=== PATIENT | female | born 1950 | race Caucasian/White ===

== ENCOUNTER 2020-03-12 11:26 | Outpatient (CLI) | payer MEDICARE, OTHER | END 2020-03-12 23:59 | disposition home or self-care (01) | LOC: RAD 11:26 | PROVIDERS: ATTEND Internal Medicine Cardiovascular Disease | DX: J98.4 Other disorders of lung (principal); I27.9 Pulmonary heart disease, unspecified | CPT/HCPCS: 78582; 94060; 94726; 94729; A9540; A9558 ==

== ENCOUNTER 2020-04-09 09:08 | Outpatient (CLI) | payer MEDICARE, OTHER, BC | END 2020-04-09 23:59 | disposition home or self-care (01) | LOC: STAR 09:08 | PROVIDERS: ATTEND Anesthesiology | DX: Z01.818 Encounter for other preprocedural examination (principal); Z11.59 Encounter for screening for other viral diseases | CPT/HCPCS: 36415; 87635 ==

== ENCOUNTER 2020-04-15 10:02 | Day surgery (SDC) | payer MEDICARE, BC, OTHER ==
[~2020-04-15] VITALS: Ht 172.7 cm; Wt 129.5 kg
[2020-04-15] MEDS ORDERED: SODIUM CHLORIDE 0.9% 1,000 ML IV SCH ×2 (10:17→13:06)
[2020-04-15] MEDS ORDERED: APIX5TAB PO (10:24)
[2020-04-15] MEDS ORDERED: METO-95 PO (10:30)
[2020-04-15] MEDS ORDERED: FLEC50TA25 PO (10:30)
[2020-04-15] MEDS ORDERED: DIPHENHYDRAMINE 50 MG/ML, 1ML IVPush ONE (10:30)
[2020-04-15] MEDS ORDERED: MAGNESIUM PO (10:30)
[2020-04-15] MEDS ORDERED: POTA8TAB PO (10:30)
[2020-04-15] MEDS ORDERED: FURO40TA6 PO (10:30)
[2020-04-15] MEDS ORDERED: DIPHENHYDRAMINE 50 MG/ML, 1ML ONE (10:44)
[2020-04-15 11:07] LABS: BASOPHILS # (AUTO) 0.07 x10^3/uL (0-0.1); BASOPHILS % (AUTO) 1 % (0-1); EOSINOPHILS # (AUTO) 0.29 x10^3/uL (0-0.4); EOSINOPHILS % (AUTO) 4 % (1-7); LYMPHOCYTES # (AUTO) 1.73 x10^3/uL (1-3.4); LYMPHOCYTES % (AUTO) 26 % (22-44); MD NO; MEAN CORPUSCULAR HGB CONC 32.9 g/dL (32.4-35.8); MEAN CORPUSCULAR VOLUME 94.1 fL (80-100); MEAN PLATELET VOLUME 7.7 fL (7.4-10.4); MONOCYTES # (AUTO) 0.37 x10^3/uL (0.2-0.8); MONOCYTES % (AUTO) 6 % (2-9); NEUTROPHILS # (AUTO) 4.28 x10^3/uL (1.8-6.8); NEUTROPHILS % (AUTO) 63 % (42-75); PLATELET COUNT 292 x10^3/uL (130-400); RED BLOOD COUNT 4.65 x10^6/uL (3.82-5.3); RED CELL DISTRIBUTION WIDTH 13.7 % (9.6-15.2)
[2020-04-15] MEDS ORDERED: MIDAZOLAM 1 MG/ML, 5ML ONE (11:08)
[2020-04-15] MEDS ORDERED: FENTANYL PF 100 MCG/2ML ONE (11:09)
[2020-04-15] MEDS ORDERED: LIDOCAINE-MPF 1%, 5ML ONE (11:09)
[2020-04-15] MEDS ORDERED: VERAPAMIL 2.5 MG/ML, 2ML ONE (11:09)
[2020-04-15] MEDS ORDERED: HEPARIN 1,000 UNITS/ML, 10ML ONE (11:09)
[2020-04-15] MEDS ORDERED: BIVALIRUDIN 250 MG ONE (11:09)
[2020-04-15 11:14] LABS: ANION GAP 5 mmol/L (5-15); CHLORIDE 110 mmol/L (98-107); CREATININE 0.92 mg/dL (0.55-1.02)
[2020-04-15] MEDS ORDERED: LIDOCAINE 1%, 20ML ONE (12:40)
[2020-04-15] MEDS ORDERED: hydrALAzine 20 MG/ML, 1ML ONE (12:44)
== END 2020-04-15 16:21 | disposition home or self-care (01) ==
LOC: CACL 10:02
PROVIDERS: ATTEND Internal Medicine Cardiovascular Disease
DX: R06.02 Shortness of breath (principal); I27.20 Pulmonary hypertension, unspecified; I48.0 Paroxysmal atrial fibrillation; I10 Essential (primary) hypertension; E66.3 Overweight; Z68.41 Body mass index [BMI] 40.0-44.9, adult; Z79.01 Long term (current) use of anticoagulants; Z79.899 Other long term (current) drug therapy; Z91.018 Allergy to other foods
CPT/HCPCS: 36415; 80048; 83880; 85025; 93456; 93567; 99156; 99157; C1760; C1769; C1894; J0360; J1200; J1644; J2250; J3010; Q9967; J0583

== ENCOUNTER 2020-05-21 11:08 | Outpatient (CLI) | payer MEDICARE, BC, OTHER ==
[~2020-05-21 11:08] MED LIST: APIX5TAB PO; FLEC50TA25 PO; FURO40TA6 PO; MAGNESIUM PO; METO-95 PO; POTA8TAB PO
== END 2020-05-21 23:59 | disposition home or self-care (01) ==
LOC: CFH 11:08
PROVIDERS: ATTEND Internal Medicine
DX: Z12.31 Encounter for screening mammogram for malignant neoplasm of breast (principal); N95.8 Other specified menopausal and perimenopausal disorders; M85.88 Other specified disorders of bone density and structure, other site
CPT/HCPCS: 77067; 77080

== ENCOUNTER 2020-08-21 13:10 | Emergency (ER) | payer MEDICARE, BC, OTHER ==
[~2020-08-21] VITALS: Ht 172.7 cm; Wt 131.3 kg
--- NOTE | 2020-08-21 14:19 | NUR ---
PT CAME IN CO OF HER "AFIB ACTING UP". PT STATES SHE HAS BEEN TAKING HER ELIQUIS EVERYDAY LIKE SHE IS SUPPOSED TO . PT CONNECTED TO [employer]. PT RESTING IN [facility]. ACCOMPANIED BY DAUGHTER
[2020-08-21] MEDS ORDERED: DILTIAZEM 5 MG/ML, 5ML ONE (14:33)
[2020-08-21] MEDS ORDERED: DILTIAZEM 5 MG/ML, 5ML IV ONE (15:00)
[2020-08-21] MEDS ORDERED: DILTIAZEM 125 MG in SODIUM CHLORIDE 0.9% 100 ML IV SCH (15:00)
[2020-08-21] MEDS ORDERED: SODIUM CHLORIDE FLUSH 10ML SYR IVF ONE (15:00)
[2020-08-21 15:17] LABS: BASOPHILS % (AUTO) 1 % (0-1); EOSINOPHILS % (AUTO) 0 % (1-7); LYMPHOCYTES % (AUTO) 28 % (22-44); MEAN CORPUSCULAR HEMOGLOBIN 31.8 pg (27.0-34.8); MEAN CORPUSCULAR HGB CONC 34.4 g/dL (32.4-35.8); MEAN PLATELET VOLUME 8.4 fL (7.4-10.4); MONOCYTES % (AUTO) 10 % (2-9); NEUTROPHILS % (AUTO) 61 % (42-75); PLATELET COUNT 190 x10^3/uL (130-400); RED BLOOD COUNT 4.91 x10^6/uL (3.82-5.3); RED CELL DISTRIBUTION WIDTH 13.4 % (9.6-15.2)
[2020-08-21 15:19] LABS: ALBUMIN 3.5 g/dL (3.4-5.0); ANION GAP 7 mmol/L (5-15); CALCIUM 9.2 mg/dL (8.5-10.1); CHLORIDE 102 mmol/L (98-107); CREATININE 0.95 mg/dL (0.55-1.02)
[2020-08-21 15:20] LABS: MD NO
[2020-08-21 15:23] LABS: TROPONIN I < 0.015 ng/mL (0.000-0.045)
--- NOTE | 2020-08-21 15:37 | NUR ---
PT MEDICATED PER MAR. WILL CONTINUE TO MONITOR
[2020-08-21] MEDS ORDERED: PROPOFOL 10 MG/ML, 20ML ONE (15:53)
--- NOTE | 2020-08-21 16:52 | NUR ---
PT CARDIOVERTED - ALL SAFETY MEASURES IN PLACE: SUCTION, AMBU BAG, CONNECTED TO ALL MONITORS, END TIDAL PT GIVEN 100MG PROPOFOL - IV INFILITRATED. PT WAS NOT SEDATED. NEW IV STARTED. 50MG PROPOFOL ADM - PT SEDATED AND SUCCESSFULLY CARDIOVERTED.
--- NOTE | 2020-08-21 17:34 | NUR ---
PT TAKEN OFF OF OXYGEN, CONT TO BE AWAKE. FAMILY AT BEDSIDE. SR PER MONITOR. REPORT TO RAQUEL SLOAN
--- NOTE | 2020-08-21 17:43 | NUR ---
PT UP FOR DC. WILL CONTINUE TO MONITOR PT FOR THE NEXT HOUR BEFORE SENDING HOME
--- NOTE | 2020-08-21 17:50 | NUR ---
PT RESTING IN [place]. SEE PRINTOUT FOR VITAL SIGNS
[2020-08-21] MEDS ORDERED: PROPOFOL 10 MG/ML, 20ML IVPush ONE (18:00)
[2020-08-21 18:22] VITALS: BP 114/76
--- NOTE | 2020-08-21 18:35 | NUR ---
DC INSTRUCTIONS TO PT AND FAMILY MEMBER. VERBALIZED UNDERSTANDING. PT AMBULATED OUT WITH STEADY GATE. VSS.
== END 2020-08-21 18:37 | disposition home or self-care (01) ==
LOC: ED 14:27
DX: I48.91 Unspecified atrial fibrillation (principal); R42 Dizziness and giddiness
CPT/HCPCS: 36415; 71045; 80048; 82040; 83880; 84484; 85025; 92960; 93005; 96361; 96365; 96366; 96374; 96375

== ENCOUNTER 2020-11-12 10:09 | Day surgery (SDC) | payer MEDICARE, BC, OTHER ==
[~2020-11-12] VITALS: Ht 172.7 cm; Wt 140.0 kg
[2020-11-12] MEDS ORDERED: DOXA1TAB2 PO (10:30)
[2020-11-12] MEDS ORDERED: BUME1TAB21 PO (10:30)
[2020-11-12 11:19] LABS: ANION GAP 5 mmol/L (5-15); CALCIUM 8.7 mg/dL (8.5-10.1); CHLORIDE 109 mmol/L (98-107); CREATININE 0.99 mg/dL (0.55-1.02)
== END 2020-11-12 13:07 | disposition home or self-care (01) ==
LOC: CACL 10:09
PROVIDERS: ATTEND Internal Medicine Cardiovascular Disease
DX: I48.0 Paroxysmal atrial fibrillation (principal); I10 Essential (primary) hypertension; I27.20 Pulmonary hypertension, unspecified; G47.30 Sleep apnea, unspecified; E66.01 Morbid (severe) obesity due to excess calories; Z68.42 Body mass index [BMI] 45.0-49.9, adult; Z79.01 Long term (current) use of anticoagulants; Z79.899 Other long term (current) drug therapy; Z86.16 Personal history of COVID-19; Z91.018 Allergy to other foods; Z91.048 Other nonmedicinal substance allergy status
CPT/HCPCS: 36415; 80048; 92960; 93005